=== PATIENT | male | born 1960 | race Caucasian/White ===

== ENCOUNTER 2016-04-18 09:55 | Emergency (ER) | payer MEDICAID ==
[~2016-04-18] VITALS: Ht 157.5 cm; Wt 78.8 kg
[~2016-04-18 09:55] MED LIST: HYDR-3498 PO; IBUP-1542 PO
[2016-04-18 09:58] VITALS: Ht 157.5 cm; Wt 78.8 kg
[2016-04-18] MEDS ORDERED: LEVE-5 PO (12:11)
[2016-04-18] MEDS ORDERED: morphine 4 MG/ML VIAL IV STA (12:16)
[2016-04-18 13:08] LABS: BASOPHILS % 0.2 % (0.0-2.0); EOSINOPHILS # 0.1 10^3/ul (0.0-0.5); EOSINOPHILS % 0.6 % (0.0-7.0); HEMATOCRIT 49.3 % (42.0-52.0); HEMOGLOBIN 16.9 g/dl (14.0-18.0); LYMPHOCYTES # 1.6 10^3/ul (0.8-2.9); LYMPHOCYTES % 9.1 % (15.0-51.0); MEAN CORPUSCULAR HEMOGLOBIN 32.1 pg (29.0-33.0); MEAN CORPUSCULAR HGB CONC 34.2 g/dl (32.0-37.0); MEAN CORPUSCULAR VOLUME 93.7 fl (82.0-101.0); MEAN PLATELET VOLUME 7.9 fl (7.4-10.4); MONOCYTE # 1.2 10^3/ul (0.3-0.9); MONOCYTES % 6.9 % (0.0-11.0); NEUTROPHIL # 14.3 10^3/ul (1.6-7.5); NEUTROPHILS % 83.2 % (39.0-77.0); PLATELET COUNT 220 10^3/UL (140-440); RED BLOOD COUNT 5.26 10^6/ul (4.70-6.10); RED CELL DISTRIBUTION WIDTH 12.4 % (11.5-14.5); UNCORRECTED WBC 17.2 10^3/ul (4.8-10.8); WHITE BLOOD COUNT 17.2 10^3/ul (4.8-10.8)
[2016-04-18 13:10] LABS: CONDITION 1
[2016-04-18 13:12] LABS: ALBUMIN 4.7 g/dl (3.3-4.9)
[2016-04-18 13:13] LABS: POTASSIUM 4.3 mmol/L (3.5-5.1)
[2016-04-18 13:15] LABS: ALBUMIN/GLOBULIN RATIO 1.17; BILIRUBIN,INDIRECT 0.9 mg/dl (0-1.1); BILIRUBIN,TOTAL 0.9 mg/dl (0.2-1.3); CALCIUM 10.2 mg/dl (8.4-10.2); CREATININE 0.7 mg/dl (0.61-1.24); TOTAL PROTEIN 8.7 g/dl (6.1-8.1)
[2016-04-18 13:59] LABS: ADD UMIC YES; URINE BILIRUBIN (Dip) NEGATIVE (NEGATIVE); URINE BLOOD (Dip) TRACE (NEGATIVE); URINE COLOR LT. YELLOW (YELLOW); URINE GLUCOSE (Dip) NEGATIVE (NEGATIVE); URINE KETONES (Dip) NEGATIVE (NEGATIVE); URINE LEUKOCYTE ESTERASE (Dip) NEGATIVE (NEGATIVE); URINE NITRITE (Dip) NEGATIVE (NEGATIVE); URINE TOTAL PROTEIN (Dip) NEGATIVE (NEGATIVE); URINE UROBILINOGEN (Dip) 0.2 E.U./dL (0.1-1.0)
--- NOTE | 2016-04-18 14:03 | RADRPT ---
PROCEDURE: Right upper quadrant abdominal ultrasound. CLINICAL INDICATION: Abdominal pain TECHNIQUE: Farnsworth scale and color doppler ultrasound images of the right upper quadrant. COMPARISON: None FINDINGS: Pancreas: Visualized portions appear of normal echogenicity, no focal lesions. Liver: Morphology: Normal in size and contour. Echogenicity: Normal. Focal lesions: None. Main portal vein: Patent with hepatopetal flow. Biliary System: Normal appearing gallbladder wall. No gallstones seen. No intra or extra-hepatic biliary dilatation. Common bile duct measures 5.3 mm in maximal dimension. Kidneys: Right 11.4 cm in length. Normal echogenicity. No hydronephrosis. No focal lesions. No free fluid identified. IMPRESSION: Normal gallbladder. No gallstones. RPTAT: AADD .Lior Baca MD, Date Time Electronically viewed and signed by .Lior Baca MD, on 04/18/2016 14:03 .B/
[2016-04-18 14:18] LABS: URINE RBCS 0-2 /HPF (0)
[2016-04-18] MEDS ORDERED: IBUP-1542 PO (14:26)
[2016-04-18 14:32] VITALS: BP 142/78; PULSE 78; RESP 18; TEMP 98.2
--- NOTE | 2016-04-18 16:55 | ERD ---
ER Documentation Chief Complaint Date/Time DATE: 04/18/16 TIME: 16:36 Chief Complaint AP SINCE YESTERDAY HPI 55-year-old male with a history of alcoholism and seizures presenting with right upper quadrant pain since yesterday. The pain comes and goes. It is described as an aching pain, nonradiating. Currently a 3 out of 10. No associated nausea, vomiting, fevers, chills, or diarrhea. Nothing seems to make the pain better or worse. He has not been drinking alcohol for 1 month. Urinating normally. ROS All systems reviewed and are negative except as per history of present illness. Medications Home Meds Active Scripts Ibuprofen* (Motrin*) 600 Mg Tab, 600 MG PO Q6H Y for PAIN AND OR ELEVATED TEMP, #30 TAB Prov:REYES MERCADO MD 04/18/16 Reported Medications Levetiracetam* (Keppra*) 500 Mg Tablet, 500 MG PO BID, TAB 04/18/16 Discontinued Scripts Hydrocodone Bit-Acetaminophen* ([place]*) 5-325 Mg Tab, 1 TAB PO Q6 Y for PAIN, # 7 TAB Prov:GELY FRANCISCO PA-C 03/17/15 Ibuprofen* (Motrin*) 600 Mg Tab, 600 MG PO Q6, #20 TAB Prov:GELY FRANCISCO PA-C 03/17/15 Allergies Allergies: Coded Allergies: No Known Allergy (Unverified , 03/17/15) PMhx/Soc History of Surgery: No Anesthesia Reaction: No Hx Neurological Disorder: Yes (Seizure disorder) Hx Respiratory Disorders: No Hx Cardiac Disorders: No Hx Psychiatric Problems: No Hx Miscellaneous Medical Probl: No Hx Alcohol Use: No (Quit 1 month ago) Hx Substance Use: No Hx Tobacco Use: No Smoking Status: Former smoker FmHx Family History: No diabetes Physical Exam Vitals Vital Signs Date Time Temp Pulse Resp B/P Pulse Ox O2 Delivery O2 Flow Rate FiO2 04/18/16 14:32 98.2 78 18 142/78 99 Room Air 04/18/16 09:58 98.4 99 18 160/81 99 Physical Exam Const: Well-appearing, no distress, nontoxic Head: Atraumatic Eyes: Normal Conjunctiva ENT: Normal External Ears, Nose and Mouth. Neck: Full range of motion..~ No meningismus. Resp: Clear to auscultation bilaterally Cardio: Regular rate and rhythm, no murmurs Abd: Soft, non tender, non distended. No Haley sign. No McBurney's point tenderness. No hepatosplenomegaly. No ascites. Normal bowel sounds Skin: No petechiae or rashes Back: No midline or flank tenderness Ext: No cyanosis, or edema Neur: Awake and alert and oriented 3 Psych: Normal Mood and Affect Result Diagram: 04/18/16 1255 04/18/16 1255 Results 24 hrs Laboratory Tests Test 04/18/16 12:55 04/18/16 13:00 Alanine Aminotransferase (ALT/SGPT) 46IU/L Albumin 4.7g/dl Albumin/Globulin Ratio 1.17 Alkaline Phosphatase 99IU/L Anion Gap 20 Aspartate Amino Transf (AST/SGOT) 38IU/L Basophils # 0.010^3/ul Basophils % 0.2% Blood Urea Nitrogen 14mg/dl Calcium Level 10.2mg/dl Carbon Dioxide Level 28mmol/L Chloride Level 101mmol/L Creatinine 0.70mg/dl Direct Bilirubin 0.00mg/dl Eosinophils # 0.110^3/ul Eosinophils % 0.6% Globulin 4.00g/dl Glucose Level 103mg/dl Hematocrit 49.3% Hemoglobin 16.9g/dl Indirect Bilirubin 0.9mg/dl Lipase 32U/L Lymphocytes # 1.610^3/ul Lymphocytes % 9.1% Mean Corpuscular Hemoglobin 32.1pg Mean Corpuscular Hemoglobin Concent 34.2g/dl Mean Corpuscular Volume 93.7fl Mean Platelet Volume 7.9fl Monocytes # 1.210^3/ul Monocytes % 6.9% Neutrophils # 14.310^3/ul Neutrophils % 83.2% Nucleated Red Blood Cells # 0.010^3/ul Nucleated Red Blood Cells % 0.0/100WBC Platelet Count 32641^3/UL Potassium Level 4.3mmol/L Red Blood Count 5.2610^6/ul Red Cell Distribution Width 12.4% Sodium Level 145mmol/L Total Bilirubin 0.9mg/dl Total Protein 8.7g/dl White Blood Count 17.210^3/ul Urine Bilirubin NEGATIVE Urine Clarity CLEAR Urine Color LT. YELLOW Urine Glucose NEGATIVE% Urine Hemoglobin TRACE Urine Ketones NEGATIVE Urine Leukocyte Esterase NEGATIVE Urine Microscopic RBC 0-2/HPF Urine Microscopic WBC NONE SEEN/HPF Urine Nitrite NEGATIVE Urine Specific Dexter 1.010 Urine Total Protein NEGATIVE Urine Urobilinogen 0.2 E.U./dL Urine pH 6.5 Current Medications Medications (Trade) Dose Ordered Sig/Jovany Route PRN Reason Start Time Stop Time Status Last Admin Dose Admin Morphine Sulfate (morphine) 4 mg ONCE STAT IV 04/18/16 12:16 04/18/16 12:17 DC 04/18/16 12:55 Procedures/MDM Differential for the patient's right upper quadrant pain includes but is not limited to biliary colic, biliary obstruction, acute cholecystitis, pancreatitis , hepatitis, lower lobe pneumonia, gastritis, colitis, cardiac pathology, aortic dissection, ureterolithiasis, pyelonephritis. Labs were ordered to evaluate for above and were only remarkable for leukocytosis. Liver enzymes and lipase were normal. Ultrasound of the abdomen ordered to evaluate gallbladder and showed no acute pathology. The patient's leukocytosis may be secondary to a viral infection. I have a lower suspicion for an acute bacterial infection or acute surgical abdomen. At this moment the etiology of the abdominal pain is unknown. The patients vitals have been noted and are currently afebrile and hemodynamically stable. The workup, physical exam and observation period do not indicate a serious cause to the pain. The patients symptoms have improved while in the ED and the patient remains hemodynamically stable. Patient was able to tolerate PO. The current assessment has been explained to the patient including the fact that the etiology of the pain cannot be ruled out with certainty. Patient was advised that in the event this is early in the process of a more serious condition they may expect their symptoms to worsen and if so to return to the emergency department immediately. Patient was advised to follow up with primary care physician as soon as possible for re-evaluation within the next 1- 2 days. All of the patients questions were answered. Patient verbalized understanding of plan and agrees. Advised to return to the ER for reevaluation within 12 hours if symptoms worsen. Departure Diagnosis: Primary Impression: Right upper quadrant abdominal pain Additional Impression: Leukocytosis, unspecified Condition: Stable Patient Instructions: Abdominal Pain, Unkown Cause, (Male) Referrals: COMMUNITY CLINICS YOU HAVE RECEIVED A MEDICAL SCREENING EXAM AND THE RESULTS INDICATE THAT YOU DO NOT HAVE A CONDITION THAT REQUIRES URGENT TREATMENT IN THE EMERGENCY DEPARTMENT. FURTHER EVALUATION AND TREATMENT OF YOUR CONDITION CAN WAIT UNTIL YOU ARE SEEN IN YOUR DOCTORS OFFICE WITHIN THE NEXT 1-2 DAYS. IT IS YOUR RESPONSIBILITY TO MAKE AN APPOINTMENT FOR FOLOW-UP CARE. IF YOU HAVE A PRIMARY DOCTOR --you should call your primary doctor and schedule an appointment IF YOU DO NOT HAVE A PRIMARY DOCTOR YOU CAN CALL OUR PHYSICIAN REFERRAL HOTLINE AT IF YOU CAN NOT AFFORD TO SEE A PHYSICIAN YOU CAN CHOSE FROM THE FOLLOWING [facility] [address] [facility] [address] [facility] [facility] [address] [facility] [address] [facility] [address] [facility]. [facility] [address] Additional Instructions: Return to the ER in 12-24 hours if your pain is worsening or not improving or you have any new worrisome symptoms.. Follow-up with your primary care doctor tomorrow for reexamination. REYES MERCADO MD Apr 18, 2016 16:46
== END 2016-04-18 14:34 | disposition home or self-care (01) ==
LOC: E/R 09:55
DX: R10.11 Right upper quadrant pain (principal); R40.2142 Coma scale, eyes open, spontaneous, at arrival to emergency department; D72.829 Elevated white blood cell count, unspecified; R40.2252 Coma scale, best verbal response, oriented, at arrival to emergency department; R40.2362 Coma scale, best motor response, obeys commands, at arrival to emergency department; Z87.891 Personal history of nicotine dependence
CPT/HCPCS: 36415; 76705; 80053; 81001; 83690; 85025; 96374; J2270; Z7502; 81003

== ENCOUNTER 2016-09-22 17:56 | Emergency (ER) | payer MEDICAID ==
[~2016-09-22] VITALS: Ht 167.6 cm; Wt 77.3 kg
[~2016-09-22 17:56] MED LIST changes: -HYDR-3498 PO; +LEVE-5 PO
[2016-09-22] MEDS ORDERED: LORAZEPAM 2 MG INJ IV STA (18:10)
[2016-09-22] MEDS ORDERED: SOD CHLORIDE 0.9% 1,000 ML IV STA (18:10)
[2016-09-22 18:11] VITALS: Ht 167.6 cm; Wt 77.3 kg
[2016-09-22] MEDS ORDERED: THIAMINE 100 MG TAB PO ONE (18:30)
[2016-09-22 18:32] LABS: ADD SCAN DIFF NO
[2016-09-22 18:34] LABS: BASOPHIL # 0.1 10^3/ul (0.0-0.1); BASOPHILS % 0.8 % (0.0-2.0); EOSINOPHILS # 0.6 10^3/ul (0.0-0.5); EOSINOPHILS % 6.4 % (0.0-7.0); HEMATOCRIT 45.9 % (42.0-52.0); HEMOGLOBIN 15.9 g/dl (14.0-18.0); LYMPHOCYTES # 4.6 10^3/ul (0.8-2.9); LYMPHOCYTES % 47.2 % (15.0-51.0); MEAN CORPUSCULAR HEMOGLOBIN 32.2 pg (29.0-33.0); MEAN CORPUSCULAR HGB CONC 34.6 g/dl (32.0-37.0); MEAN CORPUSCULAR VOLUME 92.9 fl (82.0-101.0); MEAN PLATELET VOLUME 9.2 fl (7.4-10.4); MONOCYTE # 0.7 10^3/ul (0.3-0.9); MONOCYTES % 7.1 % (0.0-11.0); NEUTROPHIL # 3.7 10^3/ul (1.6-7.5); PLATELET COUNT 239 10^3/UL (140-415); RED BLOOD COUNT 4.94 10^6/ul (4.70-6.10); RED CELL DISTRIBUTION WIDTH 12.4 % (11.5-14.5); WHITE BLOOD COUNT 9.8 10^3/ul (4.8-10.8)
[2016-09-22 18:53] LABS: ALANINE AMINOTRANSFERASE 55 IU/L (13-69); ALBUMIN 4.8 g/dl (3.3-4.9); ALKALINE PHOSPHATASE 88 IU/L (42-121); ANION GAP 15 (8-16); ASPARTATE AMINO TRANSFERASE 40 IU/L (15-46); BILIRUBIN,INDIRECT 0.2 mg/dl (0-1.1); BILIRUBIN,TOTAL 0.2 mg/dl (0.2-1.3); BLOOD UREA NITROGEN 20 mg/dl (7-20); CARBON DIOXIDE 22 mmol/L (21-31); CHLORIDE 105 mmol/L (97-110); CREATININE 1.04 mg/dl (0.61-1.24); GLUCOSE 101 mg/dl (70-220); POTASSIUM 3.4 mmol/L (3.5-5.1); SODIUM 139 mmol/L (135-144); TOTAL PROTEIN 7.8 g/dl (6.1-8.1)
[2016-09-22 18:59] LABS: ETHANOL < 10.0 mg/dl
--- NOTE | 2016-09-22 19:10 | RADRPT ---
PROCEDURE: CT Brain without contrast. CLINICAL INDICATION: Patient experiencing Seizure (Perform CT without Contrast) TECHNIQUE: A CT of the brain was performed on a [employer] 64-slice CT scanner utilizing axial imaging from the skull base through the vertex without IV contrast. Multiplanar reformatted images were made. Images were reviewed on a PACS workstation. The CTDIvol is 43.6 mGy and the DLP is 720 mGycm. COMPARISON: None FINDINGS: There is no intracranial hemorrhage, mass effect, or midline shift. No extra-axial fluid collection is seen. The ventricles and sulci are normal in size and configuration. 3. Mild periventricular wh ite matter hypodensities are nonspecific but likely reflect chronic microvascular ischemic change. G ray-white matter differentiation is preserved. The visualized paranasal sinuses and osseous structur es are grossly unremarkable. IMPRESSION: 1. No evidence of acute intracranial pathology. 2. Mild periventricular white matter hypodensities are nonspecific but likely reflect chronic micro vascular ischemic change. Physician Mauricio Date Time Electronically viewed and signed by Physician Mauricio on 09/22/2016 19:08 ML/
[2016-09-22] MEDS ORDERED: LORA1TAB PO (19:13)
--- NOTE | 2016-09-22 19:22 | ERD ---
ER Documentation Chief Complaint Date/Time DATE: 09/22/16 TIME: 19:19 Chief Complaint called RA p witnessed "seizure" at home; hx etoh abuse HPI This is a 56-year-old alcoholic who is abusing alcohol for the past few days. He said his last drink was yesterday evening. The called EMS because the patient had a seizure. states that he was going into withdrawal symptoms were shaking and agitation before the seizure. states EMS the patient's had multiple alcohol withdrawal seizures in the past. Patient had a general tonic-clonic seizure for less than 1 minute with a very brief postictal state. The patient is currently awake alert has no complaints at all. The patient states that he has no headache chest pain shortness of breath no shoulder pain or back pain. Patient smiling and very polite. Patient denies any alcohol today but says his drink was last taken yesterday late afternoon ROS All systems reviewed and are negative except as per history of present illness. Medications Home Meds Active Scripts Lorazepam* (Lorazepam*) 1 Mg Tablet, 1 MG PO Q8, #12 TAB Prov:LALITA SORIANO DO 09/22/16 Discontinued Reported Medications Levetiracetam* (Keppra*) 500 Mg Tablet, 500 MG PO BID, TAB 04/18/16 Discontinued Scripts Ibuprofen* (Motrin*) 600 Mg Tab, 600 MG PO Q6H Y for PAIN AND OR ELEVATED TEMP, #30 TAB Prov:REYES MERCADO MD 04/18/16 Allergies Allergies: Coded Allergies: No Known Allergy (Unverified , 09/22/16) PMhx/Soc History of Surgery: No (BILAT FEET SURGERY ) Anesthesia Reaction: No Hx Neurological Disorder: Yes (Seizure disorder, ETOH WITHDRAWL ) Hx Respiratory Disorders: No Hx Cardiac Disorders: No Hx Psychiatric Problems: No Hx Miscellaneous Medical Probl: No Hx Alcohol Use: Yes Hx Substance Use: No Hx Tobacco Use: No Smoking Status: Former smoker FmHx Family History: No coronary disease Physical Exam Vitals Vital Signs Date Time Temp Pulse Resp B/P Pulse Ox O2 Delivery O2 Flow Rate FiO2 09/22/16 18:11 98.9 121 22 160/100 98 Physical Exam Const: Well-developed, well-nourished Head: Atraumatic, normocephalic Eyes: Normal Conjunctiva, PERRLA, EOMI, normal sclera, no nystagmus ENT: Normal External Ears, Nose and Mouth, moist mucus membranes. Neck: Full range of motion. No meningismus, no lymphadenopathy. Resp: Clear to auscultation bilaterally, no wheezing, rhonchi, rales Cardio: Regular rate and rhythm, no murmurs, S1 S2 present Abd: Soft, non tender x 4, non distended. Normal bowel sounds, no guarding or rebound, no pulsitile abdominal masses or bruits Skin: No petechiae or rashes, no ecchymosis , no maculopapular rash Back: No midline or flank tenderness Ext: No cyanosis, or edema, FROM x 4, normal inspection, neurovascularly intact x 4, very slight tremors in his hands Neur: Awake and alert, STR 5/5 x 4, sensation intact x 4, no focal findings, cerebellum intact Psych: Normal Mood and Affect Result Diagram: 09/22/165 09/22/165 Results 24 hrs Laboratory Tests Test 09/22/16 18:15 White Blood Count 9.810^3/ul Red Blood Count 4.9410^6/ul Hemoglobin 15.9g/dl Hematocrit 45.9% Mean Corpuscular Volume 92.9fl Mean Corpuscular Hemoglobin 32.2pg Mean Corpuscular Hemoglobin Concent 34.6g/dl Red Cell Distribution Width 12.4% Platelet Count 56800^3/UL Mean Platelet Volume 9.2fl Neutrophils % 38.0% Lymphocytes % 47.2% Monocytes % 7.1% Eosinophils % 6.4% Basophils % 0.8% Nucleated Red Blood Cells % 0.0/100WBC Neutrophils # 3.710^3/ul Lymphocytes # 4.610^3/ul Monocytes # 0.710^3/ul Eosinophils # 0.610^3/ul Basophils # 0.110^3/ul Nucleated Red Blood Cells # 0.010^3/ul Sodium Level 139mmol/L Potassium Level 3.4mmol/L Chloride Level 105mmol/L Carbon Dioxide Level 22mmol/L Anion Gap 15 Blood Urea Nitrogen 20mg/dl Creatinine 1.04mg/dl Glucose Level 101mg/dl Calcium Level 9.0mg/dl Total Bilirubin 0.2mg/dl Direct Bilirubin 0.00mg/dl Indirect Bilirubin 0.2mg/dl Aspartate Amino Transf (AST/SGOT) 40IU/L Alanine Aminotransferase (ALT/SGPT) 55IU/L Alkaline Phosphatase 88IU/L Total Protein 7.8g/dl Albumin 4.8g/dl Globulin 3.00g/dl Albumin/Globulin Ratio 1.60 Ethyl Alcohol Level < 10.0mg/dl Current Medications Medications (Trade) Dose Ordered Sig/Jovany Route PRN Reason Start Time Stop Time Status Last Admin Dose Admin Sodium Chloride (NS) 1,000 ml @ 1,000 mls/hr Q1H STAT IV 09/22/16 18:10 09/22/16 19:09 DC 09/22/16 18:48 Lorazepam (Ativan) 1 mg ONCE STAT IV 09/22/16 18:10 09/22/16 18:12 DC 09/22/16 18:48 Thiamine HCl (Vitamin B1) 100 mg ONCE ONCE PO 09/22/16 18:30 09/22/16 18:31 DC Procedures/MDM PROCEDURE: CT Brain without contrast. CLINICAL INDICATION: Patient experiencing Seizure (Perform CT without Contrast) TECHNIQUE: A CT of the brain was performed on a [employer] 64-slice CT scanner utilizing axial imaging from the skull base through the vertex without IV contrast. Multiplanar reformatted images were made. Images were reviewed on a PACS workstation. The CTDIvol is 43.6 mGy and the DLP is 720 mGycm. COMPARISON: None FINDINGS: There is no intracranial hemorrhage, mass effect, or midline shift. No extra- axial fluid collection is seen. The ventricles and sulci are normal in size and configuration. 3. Mild periventricular white matter hypodensities are nonspecific but likely reflect chronic microvascular ischemic change. Farnsworth- white matter differentiation is preserved. The visualized paranasal sinuses and osseous structures are grossly unremarkable. IMPRESSION: 1. No evidence of acute intracranial pathology. 2. Mild periventricular white matter hypodensities are nonspecific but likely reflect chronic microvascular ischemic change. Physician Mauricio Date Time Electronically viewed and signed by Physician Mauricio on 09/22/2016 19 :08 ML/ CC: LALITA SORIANO DO Patient CT head is negative. His blood work is unremarkable. Alcohol level is 0. This patient's been very mild alcohol withdrawal. He must have a low threshold for seizure. This is happened multiple times to him in the past. Patient is very calm and pleasant. His vital signs are stable. Feel is safe for discharge home on Ativan every 8 hours. Departure Diagnosis: Primary Impression: Alcohol withdrawal seizure Complication of substance-induced condition: uncomplicated Qualified Code: F10.230 - Alcohol withdrawal seizure, uncomplicated Additional Impression: Alcohol withdrawal syndrome Complication of substance-induced condition: uncomplicated Qualified Code: F10.230 - Alcohol withdrawal syndrome, uncomplicated Condition: Stable Patient Instructions: Alcohol Withdrawal, Seizure, Recurrent [Adult] LALITA SORIANO DO Sep 22, 2016 19:22
[2016-09-22 20:00] VITALS: BP 134/89; PULSE 84; RESP 16; TEMP 98.9
== END 2016-09-22 20:05 | disposition home or self-care (01) ==
LOC: E/R 17:56
DX: F10.230 Alcohol dependence with withdrawal, uncomplicated (principal); R40.2142 Coma scale, eyes open, spontaneous, at arrival to emergency department; R40.2362 Coma scale, best motor response, obeys commands, at arrival to emergency department; R40.2242 Coma scale, best verbal response, confused conversation, at arrival to emergency department; Z87.891 Personal history of nicotine dependence
CPT/HCPCS: 36415; 70450; 80053; 80306; 85025; 96374; J2060; J7030; Z7502; Z7610

== ENCOUNTER 2016-10-06 08:35 | Emergency (ER) | payer MEDICAID ==
[~2016-10-06] VITALS: Ht 172.7 cm; Wt 75.0 kg
[~2016-10-06 08:35] MED LIST changes: -IBUP-1542 PO; -LEVE-5 PO; +LORA1TAB PO
[2016-10-06 08:38] VITALS: Ht 172.7 cm; Wt 75.0 kg
[2016-10-06] MEDS ORDERED: LIDOCAINE/MYLANTA 40 ML BTL PO STA (08:56)
[2016-10-06] MEDS ORDERED: FAMOTIDINE 20 MG INJ IV STA (08:56)
[2016-10-06] MEDS ORDERED: SOD CHLORIDE 0.9% 500 ML IV STA (08:56)
--- NOTE | 2016-10-06 09:22 | ERA ---
ER Documentation Chief Complaint Date/Time DATE: 10/06/16 TIME: 09:17 Chief Complaint GENERALIZED ABD PAIN X 1 DAY , DENIES N/V/D HPI 56-year-old male, Mohawk-speaking, family member acting as an manager infusion who presents with abdominal pain. He describes epigastric abdominal pain for approximately 1 day. He has a drinking history and is an alcoholic. The patient has had seizures before when he stops drinking. Is reported that his last drink was 1-2 weeks ago. The patient is describing intermittent burning epigastric abdominal discomfort that is nonradiating. No chest pain no exertional symptoms no fevers or chills no hematemesis no melena. ROS All systems reviewed and are negative except as per history of present illness. Medications Home Meds Active Scripts Famotidine* (Pepcid*) 20 Mg Tablet, 20 MG PO BID Y for abdominal pain for 14 Days, TAB Prov:SULEMA FERMIN MD 10/06/16 Lorazepam* (Lorazepam*) 1 Mg Tablet, 1 MG PO Q8, #12 TAB Prov:LALITA SORIANO DO 09/22/16 Allergies Allergies: Coded Allergies: No Known Allergy (Unverified , 10/06/16) PMhx/Soc History of Surgery: No (BILAT FEET SURGERY ) Anesthesia Reaction: No Hx Neurological Disorder: Yes (Seizure disorder, ETOH WITHDRAWL ) Hx Respiratory Disorders: No Hx Cardiac Disorders: No Hx Psychiatric Problems: No Hx Miscellaneous Medical Probl: No Hx Alcohol Use: Yes Hx Substance Use: No Hx Tobacco Use: No FmHx Family History: No diabetes Physical Exam Vitals Vital Signs Date Time Temp Pulse Resp B/P Pulse Ox O2 Delivery O2 Flow Rate FiO2 10/06/16 10:45 98.1 78 14 136/92 98 Room Air 10/06/16 08:38 97.6 86 16 137/94 98 Physical Exam General: Well developed, well nourished, no acute distress Head: Normocephalic, atraumatic. Eyes: Pupils equally reactive, EOM intact ENT: Moist mucous membranes Neck: Supple, no lymphadenopathy Respiratory: Lungs clear bilaterally, no distress Cardiovascular: RRR, no murmurs, rubs, or gallops Abdominal: Soft, non-tender, non-distended, no peritoneal signs, negative Haley sign : Deferred MSK: No edema, no unilateral swelling, 5/5 strength Neurologic: Alert and oriented, moving all extremities, normal speech, no focal weakness, no cerebellar signs Skin: No rash Psych: Normal mood Result Diagram: 10/06/1691210/06/1613 Results 24 hrs Laboratory Tests Test 10/06/16 09:13 White Blood Count 9.610^3/ul Red Blood Count 4.8410^6/ul Hemoglobin 15.1g/dl Hematocrit 44.5% Mean Corpuscular Volume 91.9fl Mean Corpuscular Hemoglobin 31.2pg Mean Corpuscular Hemoglobin Concent 33.9g/dl Red Cell Distribution Width 12.6% Platelet Count 23711^3/UL Mean Platelet Volume 9.4fl Neutrophils % 60.3% Lymphocytes % 23.7% Monocytes % 7.6% Eosinophils % 7.3% Basophils % 0.7% Nucleated Red Blood Cells % 0.0/100WBC Neutrophils # 5.810^3/ul Lymphocytes # 2.310^3/ul Monocytes # 0.710^3/ul Eosinophils # 0.710^3/ul Basophils # 0.110^3/ul Nucleated Red Blood Cells # 0.010^3/ul Prothrombin Time 13.3Sec Prothrombin Time Ratio 1.0 INR International Normalized Ratio 1.01 Activated Partial Thromboplast Time 33.0Sec Sodium Level 144mmol/L Potassium Level 4.0mmol/L Chloride Level 100mmol/L Carbon Dioxide Level 26mmol/L Anion Gap 22 Blood Urea Nitrogen 15mg/dl Creatinine 0.80mg/dl Glucose Level 95mg/dl Calcium Level 9.4mg/dl Total Bilirubin 0.7mg/dl Direct Bilirubin 0.00mg/dl Indirect Bilirubin 0.7mg/dl Aspartate Amino Transf (AST/SGOT) 36IU/L Alanine Aminotransferase (ALT/SGPT) 39IU/L Alkaline Phosphatase 92IU/L Total Protein 8.0g/dl Albumin 4.2g/dl Globulin 3.80g/dl Albumin/Globulin Ratio 1.10 Lipase 45U/L Current Medications Medications (Trade) Dose Ordered Sig/Jovany Route PRN Reason Start Time Stop Time Status Last Admin Dose Admin Sodium Chloride (NS) 500 ml @ 500 mls/hr Q1H STAT IV 10/06/16 08:56 7/22/17 09:55 DC 10/06/16 09:27 Famotidine (Pepcid Iv) 20 mg ONCE STAT IV 10/06/16 08:56 10/06/16 08:57 DC 10/06/16 09:27 Miscellaneous Medication (Gi Cocktail (2)) 40 ml ONCE STAT PO 10/06/16 08:56 10/06/16 08:57 DC 10/06/16 09:26 Procedures/MDM LAB INTERPRETATION: No evidence of acute process noted no evidence of hepatobiliary obstruction or pancreatitis MEDICAL DECISION MAKING: The patient presents with epigastric abdominal discomfort in the setting of alcohol abuse. This is likely consistent with alcoholic gastritis, consider alcoholic pancreatitis hepatitis or cirrhosis. No signs or symptoms concerning for complications such as GI bleed, no hematemesis no melena. No evidence of cardiac process or acute aortic process. Otherwise benign abdominal exam. The patient has very poor insight as to his drinking issue. As does his . I believe they are getting very limited information from her primary care services. I believe the clinical social worker consultation would be appropriate for this patient and family. ER COURSE: The patient was given a GI cocktail. The patient has resolution of symptoms. concrete worker has evaluated and the patient and family resources. The patient and family seem to have very poor insight into the patient's alcohol issues. I kept the patient and/or family informed of laboratory and diagnostic imaging results throughout the emergency room course. DISPOSITION PLAN: We discussed follow up with the patient's primary care doctor within 24 to 48 hours as needed. We also discussed return to the emergency room for worsening symptoms or worsening condition. 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
[2016-10-06 09:44] LABS: BASOPHIL # 0.1 10^3/ul (0.0-0.1); BASOPHILS % 0.7 % (0.0-2.0); EOSINOPHILS # 0.7 10^3/ul (0.0-0.5); EOSINOPHILS % 7.3 % (0.0-7.0); HEMATOCRIT 44.5 % (42.0-52.0); HEMOGLOBIN 15.1 g/dl (14.0-18.0); LYMPHOCYTES # 2.3 10^3/ul (0.8-2.9); LYMPHOCYTES % 23.7 % (15.0-51.0); MEAN CORPUSCULAR HEMOGLOBIN 31.2 pg (29.0-33.0); MEAN CORPUSCULAR HGB CONC 33.9 g/dl (32.0-37.0); MEAN CORPUSCULAR VOLUME 91.9 fl (82.0-101.0); MEAN PLATELET VOLUME 9.4 fl (7.4-10.4); MONOCYTE # 0.7 10^3/ul (0.3-0.9); MONOCYTES % 7.6 % (0.0-11.0); NEUTROPHIL # 5.8 10^3/ul (1.6-7.5); NEUTROPHILS % 60.3 % (39.0-77.0); PLATELET COUNT 250 10^3/UL (140-415); RED BLOOD COUNT 4.84 10^6/ul (4.70-6.10); RED CELL DISTRIBUTION WIDTH 12.6 % (11.5-14.5); WHITE BLOOD COUNT 9.6 10^3/ul (4.8-10.8)
[2016-10-06] MEDS ORDERED: FAMO-96 PO (10:01)
[2016-10-06 10:14] LABS: ALBUMIN 4.2 g/dl (3.3-4.9); ALBUMIN/GLOBULIN RATIO 1.1; BILIRUBIN,INDIRECT 0.7 mg/dl (0-1.1); BILIRUBIN,TOTAL 0.7 mg/dl (0.2-1.3); CALCIUM 9.4 mg/dl (8.4-10.2); CREATININE 0.8 mg/dl (0.61-1.24); INR 1.01; PROTIME 13.3 Sec (12.2-14.2)
[2016-10-06 11:29] VITALS: BP 138/88; PULSE 82; RESP 16; TEMP 98.3
== END 2016-10-06 11:33 | disposition home or self-care (01) ==
LOC: E/R 08:35
DX: F10.10 Alcohol abuse, uncomplicated (principal); K29.20 Alcoholic gastritis without bleeding
CPT/HCPCS: 36415; 80053; 83690; 85025; 85610; 85730; 96374; J7040; Z7502; Z7610

== ENCOUNTER 2017-05-13 05:41 | Inpatient (IN) | END 2017-05-13 12:46 | disposition home or self-care (01) | DRG 918 ==